=== PATIENT | male | born 1950 | race Caucasian/White ===

== ENCOUNTER 2018-11-25 13:53 | Emergency (ER) | payer MEDICARE ==
[~2018-11-25] VITALS: Ht 162.6 cm; Wt 58.2 kg
[~2018-11-25 13:53] MED LIST: DOCU-28 PO; MAGN296S50 PO; NO HOME MEDS
[2018-11-25] MEDS ORDERED: BISA-155 PO (14:59)
[2018-11-25] MEDS ORDERED: MAGN296S50 PO (14:59)
[2018-11-25] MEDS ORDERED: bisacodyl 5mg tablet.DR PO ONE (15:00)
[2018-11-25] MEDS ORDERED: LIDOcaine Viscous 15ml cup MM ONE (15:00)
--- NOTE | 2018-11-25 15:59 | NUR ---
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 she has also been drinking heavily.
--- NOTE | 2018-11-25 16:23 | NUR ---
LAST NOTE WAS ON THE WRONG PATIENT, I GAVE THIS GENTLEMAN AN ENEMA ORDERED FOR HIS CONSTIPATION AND IT WAS SUCCESSFUL
[2018-11-25 17:38] VITALS: BP 132/72
== END 2018-11-25 17:40 | disposition home or self-care (01) ==
LOC: ER 13:53
DX: K59.00 Constipation, unspecified (principal); G89.29 Other chronic pain; Z98.890 Other specified postprocedural states; Z79.899 Other long term (current) drug therapy
CPT/HCPCS: 99284

== ENCOUNTER 2018-11-28 13:44 | Inpatient (IN) | payer MEDICARE ==
[~2018-11-28] VITALS: Ht 160 cm; Wt 59.9 kg
[~2018-11-28 13:44] MED LIST changes: +BISA-155 PO
--- NOTE | 2018-11-28 14:21 | NUR ---
LUNG SOUNDS: LLL DIMINISHED, RALES THRU OUT
[2018-11-28 14:36] LABS: BASOPHILS % (AUTO) 0.3 % (0-1); HEMOGLOBIN 15.1 g/dl (14.0-17.9); LYMPHOCYTES # (AUTO) 0.9 X10'3 (1.1-4.8); MEAN CORPUSCULAR HEMOGLOBIN 30.7 PG (27.0-31.0); MEAN CORPUSCULAR HGB CONC 32.9 g/dL (33.0-36.5); MONOCYTES # (AUTO) 0.4 X10'3 (0-0.9); WHITE BLOOD COUNT 4.6 X10'3 (4.5-11.0)
[2018-11-28 14:38] LABS: EOSINOPHILS % (AUTO) 0.9 % (0-6); HEMATOCRIT 45.7 % (42.0-52.0); MEAN CORPUSCULAR VOLUME 93.3 FL (78-98); MEAN PLATELET VOLUME 7.8 FL (7.4-10.4); MONOCYTES % (AUTO) 9.5 % (2-12); NEUTROPHILS # (AUTO) 3.2 X10'3 (1.8-7.7); NEUTROPHILS % (AUTO) 69.3 % (42-75); PLATELET COUNT 204 X10'3 (140-440); RED CELL DISTRIBUTION WIDTH 14.7 % (11.5-14.5)
[2018-11-28 14:50] LABS: PARTIAL THROMBOPLASTIN TIME 27 SECONDS (22-32)
[2018-11-28 15:01] LABS: ANION GAP -1 (8-16); BILIRUBIN,TOTAL 0.5 MG/DL (0.1-1.0); BLOOD UREA NITROGEN 16 MG/DL (7-18); BUN/CREATININE RATIO 23.2 (5.4-32.0); CALCIUM 9.4 MG/DL (8.5-10.1); CHLORIDE 104 MMOL/L (99-107); CREATININE 0.69 MG/DL (0.60-1.10); GLUCOSE 97 MG/DL (70-104); POTASSIUM 4.4 MMOL/L (3.5-5.1); SODIUM 145 MMOL/L (135-145); eGFR > 90 ML/MIN
[2018-11-28 15:02] LABS: ALANINE AMINOTRANSFERASE 44 U/L (12-78); ALBUMIN 3.2 G/DL (3.4-5.0); ALKALINE PHOSPHATASE 73 IU/L (46-116); ASPARTATE AMINO TRANSFERASE 28 U/L (10-37); TOTAL PROTEIN 6.4 G/DL (6.4-8.2)
[2018-11-28 15:04] LABS: TOTAL CARBON DIOXIDE 41.8 MMOL/L (24-32)
[2018-11-28] MEDS ORDERED: normal saline 1000ML IV soln IVB ONE (15:35)
[2018-11-28 15:41] LABS: ABG BASE EXCESS 11.4 mmol/L (-2.0-3.0); ABG OXYGEN SATURATION 97.9 % (95-98); ABG PCO2 (T) 69.1 mmHg (35.0-45.0); ABG PO2 (T) 115.2 mmHg (83-108); ALLEN'S TEST Positive; FCOHb 1.1 % (0.5-1.5); FMetHb 0.2 % (0.3-1.12); FO2Hb 96.6 % (94-100); TOTAL HEMOGLOBIN 15.6 G/dl (14.0-17.9)
--- NOTE | 2018-11-28 15:59 | NUR ---
02 SAT 88-89% ON 2 L/MIN NC. 02 INCREASE TO 3L/MIN NC, 02 SATS 93-95%.
[2018-11-28] MEDS ORDERED: albuterol 2.5 MG/3 ML nebule NEB ONE (16:00)
[2018-11-28] MEDS ORDERED: methylPREDNISolone sod succ 125mg/2ml vial IV ONE (16:00)
[2018-11-28] MEDS ORDERED: morphine 2 MG/ML inj. syringe IV PRN ×2 (16:05)
[2018-11-28] MEDS ORDERED: magnesium 4gm in 100ml NS 100 ML IV PRN (16:05)
[2018-11-28] MEDS ORDERED: mag hydrox/Alum hydrox/simeth 30ml oral suspension PO PRN (16:05)
[2018-11-28] MEDS ORDERED: ondansetron/PF 4mg/2ml inj IV PRN (16:05)
[2018-11-28] MEDS ORDERED: magnesium 2GM in 50ml NS 50 ML IV PRN (16:05)
[2018-11-28] MEDS ORDERED: acetaminophen 325mg tablet PO PRN (16:05)
[2018-11-28] MEDS ORDERED: potassium CL 10mEq/100ml bag 100 ML IV PRN ×2 (16:05)
[2018-11-28] MEDS ORDERED: ipratropium/albuterol 3ml nebule NEB PRN (16:05)
[2018-11-28] MEDS ORDERED: potassium Cl 20 mEq SR tablet PO PRN ×2 (16:05)
[2018-11-28] MEDS ORDERED: magnesium Cl slow-release 64mg tablet PO PRN (16:05)
--- NOTE | 2018-11-28 16:05 | NUR ---
SÁNCHEZ BELTRAN PREFERS TO KEEP PT ON 2L/MIN NC DUE TO HIS COPD. 02 NOW AT 2L/MIN NC
[2018-11-28 18:00] VITALS: BP 140/84
[2018-11-28 18:20] VITALS: BP 113/77
--- NOTE | 2018-11-28 18:35 | NUR ---
Patient in room PCU 3024G . I have received report from JACKSON Campoverde and had the opportunity to ask questions and assume patient care. Patient needs a two RN skin check. Pt refused RT treatment because albuterol stimulates him too much. I will sent note to RT after consulting with chief specialist leed. Pt denies CP, dizziness, EISEBNERG, n/v, and rated pain 0/10. Will continue to monitor
--- NOTE | 2018-11-28 19:11 | NUR ---
Pt. is admitted onto floor within minutes of shift change. Wound photos are taken and placed into the chart, a protective foam is placed on the coccyx wound area. Respiratory Therapy is called for a breathing treatment but Pt. did refuse the breathing treatment. Dr. Garcia is called for order clarification on telemetry needs and He does not see a need for Telemetry, IV is patent and flushes well.
--- NOTE | 2018-11-28 19:46 | NUR ---
Patient has an order for RT treatment. Patient states that albuterol " stimulates me too much, Sent page to RT to do an evaluation. Dallin Winchester Room # 9393G has a RT treatment schedule. However, patient states that albuterol "stimulates him too much" Per Florian Hernandez RN pls come and do an evaluation.
[2018-11-28] MEDS: methylPREDNISolone sod succ 125mg/2ml vial IV SCH ×2 (20:35→21:00)
--- NOTE | 2018-11-28 21:30 | NUR ---
Solumedrol schedule for 21:00 was not administered because solumedrol that was schedule for 16:30 was administered at 20:35
[2018-11-28 22:00] VITALS: BP 113/61
[2018-11-29] VITALS (10 sets, daily range): BP systolic 94–133; BP diastolic 60–118
--- NOTE | 2018-11-29 01:05 | NUR ---
The following admission interventions were done: admission assessment, past medical history, vaccinations review,2 RN skin check, and malnutrition risk. Pt got tired and request to do family history tomorrow.
[2018-11-29 05:51] LABS: BASOPHILS % (AUTO) 0.1 % (0-1); EOSINOPHILS % (AUTO) 0.1 % (0-6); HEMATOCRIT 50.6 % (42.0-52.0); HEMOGLOBIN 16.6 g/dl (14.0-17.9); LYMPHOCYTES # (AUTO) 0.3 X10'3 (1.1-4.8); MEAN CORPUSCULAR HEMOGLOBIN 30.9 PG (27.0-31.0); MEAN CORPUSCULAR HGB CONC 32.7 g/dL (33.0-36.5); MEAN CORPUSCULAR VOLUME 94.4 FL (78-98); MEAN PLATELET VOLUME 7.9 FL (7.4-10.4); MONOCYTES # (AUTO) 0.1 X10'3 (0-0.9); MONOCYTES % (AUTO) 1.8 % (2-12); NEUTROPHILS # (AUTO) 4.1 X10'3 (1.8-7.7); PLATELET COUNT 195 X10'3 (140-440); RED BLOOD COUNT 5.36 X10'6 (4.70-6.10); RED CELL DISTRIBUTION WIDTH 14.6 % (11.5-14.5); WHITE BLOOD COUNT 4.5 X10'3 (4.5-11.0)
[2018-11-29 05:57] LABS: ALANINE AMINOTRANSFERASE 53 U/L (12-78); ALBUMIN 3.2 G/DL (3.4-5.0); ALBUMIN/GLOBULIN RATIO 0.9 (1.1-1.5); ALKALINE PHOSPHATASE 78 IU/L (46-116); ANION GAP 2 (8-16); ASPARTATE AMINO TRANSFERASE 29 U/L (10-37); BILIRUBIN,TOTAL 0.4 MG/DL (0.1-1.0); BLOOD UREA NITROGEN 16 MG/DL (7-18); BUN/CREATININE RATIO 25.8 (5.4-32.0); CALCIUM 9.4 MG/DL (8.5-10.1); CHLORIDE 105 MMOL/L (99-107); CREATININE 0.62 MG/DL (0.60-1.10); GLUCOSE 148 MG/DL (70-104); MAGNESIUM 2.1 MG/DL (1.5-2.4); POTASSIUM 4.7 MMOL/L (3.5-5.1); SODIUM 147 MMOL/L (135-145); TOTAL PROTEIN 6.7 G/DL (6.4-8.2); eGFR > 90 ML/MIN
[2018-11-29 06:03] LABS: TOTAL CARBON DIOXIDE 40.5 MMOL/L (24-32)
--- NOTE | 2018-11-29 06:07 | NUR ---
Problems reprioritized. Patient report given, questions answered & plan of care reviewed with Dulce. Patient stable at shift change. .
--- NOTE | 2018-11-29 06:18 | NUR ---
Patient in room PCU 3026. I have received report from JACKSON Sinclair and had the opportunity to ask questions and assume patient care.
[2018-11-29] MEDS: methylPREDNISolone sod succ 125mg/2ml vial IV SCH ×3 (07:44→20:48)
[2018-11-29] MEDS: enoxaparin 40mg/0.4ml syringe SQ SCH (07:45)
[2018-11-29] MEDS: K and/or MAG REPLACEMENT MC SCH (07:53)
--- NOTE | 2018-11-29 10:52 | NUR ---
PAGER ID: [phone] MESSAGE: [id number] Ranulfo: Paging a rapid response called for respiratory concerns. Guppy breathing, confused. Thanks Dulce [phone]
--- NOTE | 2018-11-29 11:03 | NUR ---
Went in to help turn patient. Patient LOC altered from early this morning. Rapid was called, ABG & Chest X-Ray ordered.
[2018-11-29 11:05] LABS: ABG BASE EXCESS 11.3 mmol/L (-2.0-3.0); ABG HCO3 47.3 mmol/L (22.0-26.0); ABG OXYGEN SATURATION 88.5 % (95-98); ABG PCO2 (T) 131.8 mmHg (35.0-45.0); ABG PH (T) 7.173 (7.350-7.450); ABG PO2 (T) 62.9 mmHg (83-108); ALLEN'S TEST Positive; FCOHb 1.2 % (0.5-1.5); FLOW 1 L/min; FMetHb 0.4 % (0.3-1.12); FO2Hb 87.1 % (94-100); TOTAL HEMOGLOBIN 17.6 G/dl (14.0-17.9)
--- NOTE | 2018-11-29 11:09 | NUR ---
Dr. Yeung: PAGER ID: [phone] MESSAGE: Room 3026B Dallin Winchester: Patient's arterial blood gas results pH: 7.173 & pC02: 131.8. Thank you, Zuly ext [phone].
[2018-11-29] MEDS: CefTRIAXone/D5W-Rocephin 1gm 50 ML IV SCH (11:47)
--- NOTE | 2018-11-29 12:02 | NUR ---
Malnutrition consult: Pt admit w/ COPD exacerbation. PO 75-100% regular diet meeting ndds. LBM 11/25; DENNISE d/w RN for routine bowel care per MD approval. Pt has no edema/wounds and mild weakness present. Does not meet minimum malnutrition criteria at this time. Will continue to monitor. Addendum: 11/29/18 at [address] Amended: Links added.
--- NOTE | 2018-11-29 12:06 | NUR ---
New order from Dr. Yeung timed ABG for 7104
[2018-11-29 12:45] LABS: ABG BASE EXCESS 12.2 mmol/L (-2.0-3.0); ABG HCO3 39.8 mmol/L (22.0-26.0); ABG PCO2 (T) 62.2 mmHg (35.0-45.0); ABG PH (T) 7.424 (7.350-7.450); ABG PO2 (T) 56.4 mmHg (83-108); ALLEN'S TEST Positive; FCOHb 1.7 % (0.5-1.5); FMetHb 0.3 % (0.3-1.12); FO2Hb 90.2 % (94-100); MINUTE VOLUME 9 L/min; RESPIRATORY RATE 16 b/min; RESPIRATORY RATE (OBSERVED) 21 b/min; TIDAL VOLUME 525 mL; TOTAL HEMOGLOBIN 16.2 G/dl (14.0-17.9)
[2018-11-29] MEDS: azithromycin/NS 500mg/250ml 250 ML IV SCH (12:52)
--- NOTE | 2018-11-29 14:41 | NUR ---
Spoke with patient about bowel care. Patient declines and states this is normal for him to go without bowel movement for four days. Will continue to monitor.
[2018-11-29 15:36] LABS: ABG BASE EXCESS 11.8 mmol/L (-2.0-3.0); ABG HCO3 36.7 mmol/L (22.0-26.0); ABG OXYGEN SATURATION 90.5 % (95-98); ABG PO2 (T) 48.4 mmHg (83-108); ALLEN'S TEST Positive; FCOHb 1.5 % (0.5-1.5); FMetHb 0.3 % (0.3-1.12); FO2Hb 88.9 % (94-100); MINUTE VOLUME 14 L/min; RESPIRATORY RATE 20 b/min; RESPIRATORY RATE (OBSERVED) 20 b/min; TIDAL VOLUME 699 mL; TOTAL HEMOGLOBIN 15.9 G/dl (14.0-17.9)
[2018-11-29 17:35] LABS: ABG BASE EXCESS 12.4 mmol/L (-2.0-3.0); ABG HCO3 39.3 mmol/L (22.0-26.0); ABG OXYGEN SATURATION 95.6 % (95-98); ABG PCO2 (T) 58.1 mmHg (35.0-45.0); ABG PH (T) 7.448 (7.350-7.450); ABG PO2 (T) 71.7 mmHg (83-108); ALLEN'S TEST Positive; FCOHb 1.3 % (0.5-1.5); FMetHb 0.2 % (0.3-1.12); FO2Hb 94.2 % (94-100); MINUTE VOLUME 10 L/min; RESPIRATORY RATE 20 b/min; RESPIRATORY RATE (OBSERVED) 20 b/min; TIDAL VOLUME 500 mL; TOTAL HEMOGLOBIN 15.7 G/dl (14.0-17.9)
--- NOTE | 2018-11-29 17:42 | NUR ---
Page Dr. Yeung: PAGER ID: [phone] MESSAGE: Room: 302 Dallin Winchester: Patient's ABG Results pH: 7.448, CO2: 58.1, PO2: 71.7. Thank you, Zuly ext [phone].
--- NOTE | 2018-11-29 18:25 | NUR ---
Problems reprioritized. Patient report given, questions answered & plan of care reviewed with Bobbi PAZ & Nikki PAZ.
--- NOTE | 2018-11-29 18:46 | NUR ---
Patient in room PCU 3026. I have received report from Rajat PAZ and had the opportunity to ask questions and assume patient care.
[2018-11-30] VITALS (11 sets, daily range): BP systolic 102–131; BP diastolic 66–83
[2018-11-30 03:46] LABS: ABG BASE EXCESS 12.3 mmol/L (-2.0-3.0); ABG HCO3 37.4 mmol/L (22.0-26.0); ABG OXYGEN SATURATION 96.4 % (95-98); ABG PCO2 (T) 48.7 mmHg (35.0-45.0); ABG PH (T) 7.503 (7.350-7.450); ABG PO2 (T) 77.5 mmHg (83-108); ALLEN'S TEST Positive; FCOHb 0.6 % (0.5-1.5); FMetHb 0.2 % (0.3-1.12); FO2Hb 95.6 % (94-100); RESPIRATORY RATE 20 b/min; RESPIRATORY RATE (OBSERVED) 20 b/min; TOTAL HEMOGLOBIN 15.5 G/dl (14.0-17.9)
[2018-11-30 05:26] LABS: GLUCOSE 136 MG/DL (70-104); SODIUM 146 MMOL/L (135-145)
[2018-11-30 05:27] LABS: ALANINE AMINOTRANSFERASE 40 U/L (12-78); ALBUMIN 2.8 G/DL (3.4-5.0); ALKALINE PHOSPHATASE 63 IU/L (46-116); ANION GAP 4 (8-16); ASPARTATE AMINO TRANSFERASE 19 U/L (10-37); BILIRUBIN,TOTAL 0.7 MG/DL (0.1-1.0); BLOOD UREA NITROGEN 21 MG/DL (7-18); BUN/CREATININE RATIO 27.3 (5.4-32.0); CALCIUM 9.3 MG/DL (8.5-10.1); CHLORIDE 105 MMOL/L (99-107); CREATININE 0.77 MG/DL (0.60-1.10); TOTAL CARBON DIOXIDE 37.5 MMOL/L (24-32); TOTAL PROTEIN 5.7 G/DL (6.4-8.2); eGFR > 90 ML/MIN
[2018-11-30 05:33] LABS: BASOPHILS % (AUTO) 0.1 % (0-1); EOSINOPHILS % (AUTO) 0 % (0-6); HEMATOCRIT 45.1 % (42.0-52.0); HEMOGLOBIN 15.1 g/dl (14.0-17.9); LYMPHOCYTES # (AUTO) 0.6 X10'3 (1.1-4.8); LYMPHOCYTES % (AUTO) 7.1 % (21-51); MEAN CORPUSCULAR HEMOGLOBIN 31.1 PG (27.0-31.0); MEAN CORPUSCULAR HGB CONC 33.5 g/dL (33.0-36.5); MEAN CORPUSCULAR VOLUME 92.9 FL (78-98); MEAN PLATELET VOLUME 8.2 FL (7.4-10.4); MONOCYTES # (AUTO) 0.3 X10'3 (0-0.9); MONOCYTES % (AUTO) 4.3 % (2-12); NEUTROPHILS # (AUTO) 6.9 X10'3 (1.8-7.7); NEUTROPHILS % (AUTO) 88.5 % (42-75); PLATELET COUNT 217 X10'3 (140-440); RED BLOOD COUNT 4.85 X10'6 (4.70-6.10); RED CELL DISTRIBUTION WIDTH 14.6 % (11.5-14.5); WHITE BLOOD COUNT 7.8 X10'3 (4.5-11.0)
--- NOTE | 2018-11-30 06:26 | NUR ---
Problems reprioritized. Patient report given, questions answered & plan of care reviewed with Veronica PAZ.
--- NOTE | 2018-11-30 06:28 | NUR ---
Patient in room PCU 3026. I have received report from Bobbi PAZ/Nikki PAZ and had the opportunity to ask questions and assume patient care.
--- NOTE | 2018-11-30 06:30 | NUR ---
Patient in room PCU 3026. I have received report from Bobbi PAZ and had the opportunity to ask questions and assume patient care. Patient awake in bed. Repositioned patient for comfort. All immediate needs met at this time.
[2018-11-30] MEDS: K and/or MAG REPLACEMENT MC SCH (08:00)
[2018-11-30] MEDS: methylPREDNISolone sod succ 125mg/2ml vial IV SCH ×3 (08:53→20:21)
[2018-11-30] MEDS: CefTRIAXone/D5W-Rocephin 1gm 50 ML IV SCH (08:54)
[2018-11-30] MEDS: enoxaparin 40mg/0.4ml syringe SQ SCH (08:54)
[2018-11-30] MEDS: azithromycin/NS 500mg/250ml 250 ML IV SCH (09:59)
--- NOTE | 2018-11-30 10:24 | NUR ---
New order from Dr. Yeung: Xopenex Q6H and ipatropium administered by RT.
[2018-11-30] MEDS ORDERED: mineral oil 133ml enema RC PRN (12:40)
[2018-11-30 13:11] LABS: ABG BASE EXCESS 13.9 mmol/L (-2.0-3.0); ABG HCO3 45.2 mmol/L (22.0-26.0); ABG OXYGEN SATURATION 93.5 % (95-98); ABG PCO2 (T) 89.2 mmHg (35.0-45.0); ABG PH (T) 7.323 (7.350-7.450); ABG PO2 (T) 71.7 mmHg (83-108); ALLEN'S TEST Positive; FCOHb 0.7 % (0.5-1.5); FLOW 1 L/min; FMetHb 0.4 % (0.3-1.12); FO2Hb 92.5 % (94-100); TOTAL HEMOGLOBIN 16.5 G/dl (14.0-17.9)
[2018-11-30] MEDS: levalbuterol 0.63mg/3ml nebule IH SCH ×2 (15:25→19:48)
[2018-11-30] MEDS: ipratropium 0.5 MG/2.5ML nebule IH SCH ×2 (15:26→19:48)
--- NOTE | 2018-11-30 18:16 | NUR ---
[place] documentation: I have reviewed and agree with all interventions, assessments performed and documented by JACKSON Espinoza. [facility] Medication Administration: For this medication-pass time frame, all medication were reviewed, dispensed, administered and documented per hospital policy by JACKSON Espinoza.
--- NOTE | 2018-11-30 18:29 | NUR ---
Problems reprioritized. Patient report given, questions answered & plan of care reviewed with Vilma PAZ/Nikki PAZ. Patient stable at transfer of care.
--- NOTE | 2018-11-30 18:30 | NUR ---
Patient in room PCU 3026. I have received report from Veronica PAZ and had the opportunity to ask questions and assume patient care with Nikki PAZ.
--- NOTE | 2018-11-30 18:32 | NUR ---
Problems reprioritized. Patient report given, questions answered & plan of care reviewed with Vilma PAZ. Patient stable at transfer of care.
[2018-11-30] MEDS: lactobacillus rhamnosus 10,000 MMU CELLS/CAPSULE PO SCH (20:21)
[2018-11-30] MEDS ORDERED: polyethylene glycol 3350 17gm powd pack PO SCH (21:00)
[2018-12-01 02:00] VITALS: BP 133/76
[2018-12-01] MEDS: ipratropium 0.5 MG/2.5ML nebule IH SCH ×4 (02:52→21:10)
[2018-12-01] MEDS: levalbuterol 0.63mg/3ml nebule IH SCH ×4 (02:52→21:10)
[2018-12-01 05:04] LABS: BASOPHILS % (AUTO) 0 % (0-1); EOSINOPHILS % (AUTO) 0 % (0-6); HEMATOCRIT 46.4 % (42.0-52.0); HEMOGLOBIN 15.3 g/dl (14.0-17.9); LYMPHOCYTES # (AUTO) 0.4 X10'3 (1.1-4.8); LYMPHOCYTES % (AUTO) 5.3 % (21-51); MEAN CORPUSCULAR HEMOGLOBIN 30.7 PG (27.0-31.0); MEAN CORPUSCULAR HGB CONC 33.1 g/dL (33.0-36.5); MEAN CORPUSCULAR VOLUME 92.8 FL (78-98); MEAN PLATELET VOLUME 8.4 FL (7.4-10.4); MONOCYTES # (AUTO) 0.2 X10'3 (0-0.9); MONOCYTES % (AUTO) 2.8 % (2-12); NEUTROPHILS # (AUTO) 6.6 X10'3 (1.8-7.7); NEUTROPHILS % (AUTO) 91.9 % (42-75); PLATELET COUNT 206 X10'3 (140-440); RED BLOOD COUNT 4.99 X10'6 (4.70-6.10); RED CELL DISTRIBUTION WIDTH 14.6 % (11.5-14.5); WHITE BLOOD COUNT 7.2 X10'3 (4.5-11.0)
[2018-12-01 05:26] LABS: ALANINE AMINOTRANSFERASE 45 U/L (12-78); ALKALINE PHOSPHATASE 68 IU/L (46-116); ANION GAP 4 (8-16); ASPARTATE AMINO TRANSFERASE 21 U/L (10-37); BILIRUBIN,TOTAL 0.6 MG/DL (0.1-1.0); BLOOD UREA NITROGEN 25 MG/DL (7-18); BUN/CREATININE RATIO 37.9 (5.4-32.0); CALCIUM 9.3 MG/DL (8.5-10.1); CHLORIDE 106 MMOL/L (99-107); CREATININE 0.66 MG/DL (0.60-1.10); GLUCOSE 121 MG/DL (70-104); MAGNESIUM 2.2 MG/DL (1.5-2.4); POTASSIUM 4.3 MMOL/L (3.5-5.1); SODIUM 147 MMOL/L (135-145); TOTAL CARBON DIOXIDE 36.8 MMOL/L (24-32); TOTAL PROTEIN 6.1 G/DL (6.4-8.2); eGFR > 90 ML/MIN
[2018-12-01 06:00] VITALS: BP 145/82
--- NOTE | 2018-12-01 06:34 | NUR ---
Patient in room PCU 3026. I have received report from JACKSON Esparza and JACKSON Henley and had the opportunity to ask questions and assume patient care. Pt is awake and alert. No needs at this time. Will continue to monitor.
--- NOTE | 2018-12-01 06:35 | NUR ---
pt rested through the night. No BM. refused Miralax.
--- NOTE | 2018-12-01 06:36 | NUR ---
Problems reprioritized. Patient report given, questions answered & plan of care reviewed with Brittaney RNs. [facility] documentation: I have reviewed and agree with all interventions, meds given, assessments performed and documented by Nikki PAZ.
--- NOTE | 2018-12-01 07:05 | NUR ---
Patient in room PCU 3026. I have received report from JACKSON Esparza and JACKSON Henley and had the opportunity to ask questions and assume patient care.
[2018-12-01] MEDS: K and/or MAG REPLACEMENT MC SCH (08:00)
[2018-12-01] MEDS: methylPREDNISolone sod succ 125mg/2ml vial IV SCH ×3 (08:09→21:00)
[2018-12-01] MEDS: CefTRIAXone/D5W-Rocephin 1gm 50 ML IV SCH (08:09)
[2018-12-01] MEDS: azithromycin 250mg tablet PO SCH (08:10)
[2018-12-01] MEDS: enoxaparin 40mg/0.4ml syringe SQ SCH (08:10)
[2018-12-01] MEDS: lactobacillus rhamnosus 10,000 MMU CELLS/CAPSULE PO SCH ×2 (08:10→21:00)
--- NOTE | 2018-12-01 09:38 | NUR ---
PAGER ID: [phone] MESSAGE: [id number]. pt. Dallin Winchester. can we get a PT eval order. Thank you. JACKSON Jacobson #[phone]
[2018-12-01 11:00] VITALS: BP 126/70
[2018-12-01] MEDS: polyethylene glycol 3350 17gm powd pack PO SCH (14:13)
[2018-12-01 15:00] VITALS: BP 128/65
--- NOTE | 2018-12-01 16:25 | NUR ---
PAGER ID: [phone] MESSAGE: RM 3026B. pt. Ranulfo Dallin. He still has not had a BM since 11/25 even after a enema yesterday. Miralax given today. may we order him a KUB. please advise. JACKSON Jacobson #[phone]
[2018-12-01 18:00] VITALS: BP 122/76
--- NOTE | 2018-12-01 18:20 | NUR ---
Problems reprioritized. Patient report given, questions answered & plan of care reviewed with JACKSON Esparza and JACKSON Jordan.
--- NOTE | 2018-12-01 18:25 | NUR ---
Problems reprioritized. Patient report given, questions answered & plan of care reviewed with JACKSON Esparza and JACKSON Jordan.
--- NOTE | 2018-12-01 18:30 | NUR ---
Patient in room PCU 3026. I have received report from Crista PAZ and had the opportunity to ask questions and assume patient care.
--- NOTE | 2018-12-01 18:30 | NUR ---
Patient in room PCU 3026. I have received report from Crista PAZ and had the opportunity to ask questions and assume patient care with Lory PAZ.
[2018-12-01] MEDS ORDERED: magnesium citrate 296ml oral solution PO ONE (21:10)
[2018-12-01 22:00] VITALS: BP 132/82
[2018-12-02 02:00] VITALS: BP 136/89
[2018-12-02] MEDS: ipratropium 0.5 MG/2.5ML nebule IH SCH ×2 (03:20→09:25)
[2018-12-02] MEDS: levalbuterol 0.63mg/3ml nebule IH SCH ×2 (03:20→09:25)
--- NOTE | 2018-12-02 05:42 | NUR ---
PT FINALLY HAD BM. NOW RESTING, EYES CLOSED, NO SIGNS OF DISTRESS NOTED. DID NOT SLEEP MUCH MOST OF NIGHT.
--- NOTE | 2018-12-02 05:43 | NUR ---
oRIENTEE documentation: I have reviewed and agree with all interventions, MEDS GIVEN, assessments performed and documented by GERI PAZ.
[2018-12-02 05:53] LABS: BASOPHILS % (AUTO) 0 % (0-1); EOSINOPHILS % (AUTO) 0 % (0-6); HEMATOCRIT 48.8 % (42.0-52.0); LYMPHOCYTES # (AUTO) 0.2 X10'3 (1.1-4.8); LYMPHOCYTES % (AUTO) 2.8 % (21-51); MEAN CORPUSCULAR HEMOGLOBIN 30.7 PG (27.0-31.0); MEAN CORPUSCULAR HGB CONC 32.7 g/dL (33.0-36.5); MEAN CORPUSCULAR VOLUME 93.9 FL (78-98); MEAN PLATELET VOLUME 8.7 FL (7.4-10.4); MONOCYTES # (AUTO) 0.2 X10'3 (0-0.9); MONOCYTES % (AUTO) 2.7 % (2-12); NEUTROPHILS # (AUTO) 7.1 X10'3 (1.8-7.7); NEUTROPHILS % (AUTO) 94.5 % (42-75); PLATELET COUNT 178 X10'3 (140-440); RED BLOOD COUNT 5.19 X10'6 (4.70-6.10); RED CELL DISTRIBUTION WIDTH 14.9 % (11.5-14.5); WHITE BLOOD COUNT 7.5 X10'3 (4.5-11.0)
[2018-12-02 06:00] VITALS: BP 118/94
[2018-12-02 06:12] LABS: GLUCOSE 121 MG/DL (70-104); SODIUM 148 MMOL/L (135-145)
[2018-12-02 06:13] LABS: ALANINE AMINOTRANSFERASE 73 U/L (12-78); ALBUMIN 3.1 G/DL (3.4-5.0); ALKALINE PHOSPHATASE 75 IU/L (46-116); ANION GAP 3 (8-16); ASPARTATE AMINO TRANSFERASE 38 U/L (10-37); BILIRUBIN,TOTAL 0.6 MG/DL (0.1-1.0); BLOOD UREA NITROGEN 24 MG/DL (7-18); BUN/CREATININE RATIO 44.4 (5.4-32.0); CALCIUM 8.9 MG/DL (8.5-10.1); CHLORIDE 108 MMOL/L (99-107); CREATININE 0.54 MG/DL (0.60-1.10); MAGNESIUM 3.1 MG/DL (1.5-2.4); POTASSIUM 4.7 MMOL/L (3.5-5.1); TOTAL CARBON DIOXIDE 36.6 MMOL/L (24-32); TOTAL PROTEIN 6.2 G/DL (6.4-8.2); eGFR > 90 ML/MIN
--- NOTE | 2018-12-02 06:18 | NUR ---
Patient in room PCU 3026. I have received report from JACKSON Esparza and JACKSON Jordan and had the opportunity to ask questions and assume patient care. Pt sleeping. Will continue to monitor.
--- NOTE | 2018-12-02 06:19 | NUR ---
Problems reprioritized. Patient report given, questions answered & plan of care reviewed with eBtzy rn.
--- NOTE | 2018-12-02 06:21 | NUR ---
Problems reprioritized. Patient report given, questions answered & plan of care reviewed with Crista RN.
[2018-12-02] MEDS: methylPREDNISolone sod succ 125mg/2ml vial IV SCH ×2 (07:57→13:34)
[2018-12-02] MEDS: lactobacillus rhamnosus 10,000 MMU CELLS/CAPSULE PO SCH (07:58)
[2018-12-02] MEDS: enoxaparin 40mg/0.4ml syringe SQ SCH (07:59)
[2018-12-02] MEDS: azithromycin 250mg tablet PO SCH (07:59)
[2018-12-02] MEDS: polyethylene glycol 3350 17gm powd pack PO SCH (08:00)
[2018-12-02] MEDS: CefTRIAXone/D5W-Rocephin 1gm 50 ML IV SCH (08:00)
[2018-12-02] MEDS: K and/or MAG REPLACEMENT MC SCH (08:00)
[2018-12-02 11:00] VITALS: BP 116/71
--- NOTE | 2018-12-02 14:48 | NUR ---
Pt discharged. IV d/c'd, tele removed, all belongings sent with pt. Left via gurney with [facility] [employer].
== END 2018-12-02 14:12 | DRG 193 ==
LOC: ER 13:45 → PCU 3S 17:19
PROVIDERS: ADMIT Family Medicine; ATTEND Internal Medicine
PROC: 5A09357 Assistance with Respiratory Ventilation, Less than 24 Consecutive Hours, Continuous Positive Airway Pressure (ICD-10-PCS; principal; 2018-11-29)
PROC: 5A09357 Assistance with Respiratory Ventilation, Less than 24 Consecutive Hours, Continuous Positive Airway Pressure (ICD-10-PCS; 2018-11-30)
DX: J18.9 Pneumonia, unspecified organism (principal); J96.21 Acute and chronic respiratory failure with hypoxia; J44.1 Chronic obstructive pulmonary disease with (acute) exacerbation; E87.2 Acidosis; J44.0 Chronic obstructive pulmonary disease with (acute) lower respiratory infection; L98.9 Disorder of the skin and subcutaneous tissue, unspecified; G89.29 Other chronic pain; Z87.891 Personal history of nicotine dependence
CPT/HCPCS: 36415; 36600; 71045; 80053; 82803; 83735; 83880; 84484; 85018; 85025; 85610; 85730; 87081; 93005; 94640; 94660; 94760; 96361; 96374; 97161; 97530; 99285; G0378; J0456; J0696; J1650; J2930; J7614